=== PATIENT | female | born 1990 | race Caucasian/White ===

== ENCOUNTER 2019-07-25 09:03 | Emergency (ER) | payer OTHER, SELFPAY ==
--- NOTE | ~2019-07-25 | XR_ITS ---
EXAMINATION: XR foot RT min 3V DATE: 07/25/2019 10:39 INDICATION: Right foot wound. TECHNIQUE: 4 views of right foot were obtained. COMPARISON: None. FINDINGS: Bone alignment is normal. No fracture. Joint spaces are well maintained. IMPRESSION: 1. Normal right foot. Reviewed, dictated and finalized at location A. IMPRESSION: 1. Normal right foot.
[2019-07-25 09:05] VITALS: BP 133/85; PULSE 111; RESP 16; TEMP 36.8; O2SAT 98
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
[2019-07-25 09:54] LABS: Add Urine Microscopic? NO; Appearance Urine Clear (Clear); Bilirubin Urine Negative (Negative); Blood Urine Negative (Negative); Color Urine Yellow (Yellow); Glucose Urine UA Negative (Negative); Ketones Urine Negative (Negative); Leukocyte Esterase Ur Negative LEU/UL (Negative); Nitrate Urine Negative (Negative); Protein Urine Negative (Negative); Specific Grav Ur 1.016 (1.001-1.035); Urobilinogen Urine Negative mg/dL (<2.0)
[2019-07-25 10:11] LABS: Amphetamine Screen Urine Negative (Negative); Barbiturate Screen Urine Negative (Negative); Benzodiazepines Screen Urine Negative (Negative); Cannabinoid Screen Urine Positive (Negative); Cocaine Screen Urine Negative (Negative); Methadone Screen Urine Negative (Negative); Opiate Screen Urine Negative (Negative); Phencyclidine Screen Urine Negative (Negative)
[2019-07-25 11:16] LABS: Basophils Absolute Auto 0.1 K/mm3 (0.0-0.1); Basophils Percent Auto 0.7 % (0.2-1.2); Eosinophils Absolute Auto 0.3 K/mm3 (0-0.3); Eosinophils Percent Auto 4.6 % (0-4.4); Hematocrit 35.1 % (37.0-47.0); Hemoglobin 11.3 g/dL (12.0-15.0); Immature Granulocyte Absolute 0.09 K/mm3 (0.00-0.031); Immature Granulocyte Percent A 1.3 % (0-0.5); Lymphocytes Absolute Auto 2.53 K/mm3 (0.9-3.2); Lymphocytes Percent Auto 37.9 % (18.3-44.2); Mean Corpuscular HGB Conc 32.2 g/dl (32-36); Mean Platelet Volume 10.5 fl (7.4-10.4); Monocytes Absolute Auto 0.4 K/mm3 (0.1-0.6); Monocytes Percent Auto 6.6 % (2.6-8.5); Neutrophils Absolute Auto 3.3 K/mm3 (1.3-6.7); Neutrophils Percent Auto 48.9 % (45.5-73.1); Nucleated Red Blood Cells Perc 0.6 % (0.0-0.2); Platelet Count Result 339 k/mm3 (150-375); Red Blood Count 4.18 M/mm3 (4.2-5.4); Red Cell Distribution Width 17.4 % (11.5-14.5); White Blood Count 6.7 K/mm3 (4.5-10.0)
[2019-07-25 11:30] LABS: Ethanol < 10 mg/dL (<10)
[2019-07-25 11:32] LABS: Alanine Aminotransferase 22 U/L (4-35); Albumin Level 4.6 g/dL (3.5-5.1); Alkaline Phosphatase 88 U/L (38-126); Aspartate Amino Transferase 30 U/L (14-36); Bilirubin,Total 0.3 mg/dL (0.2-1.3); Blood Urea Nitrogen 15 mg/dL (7-17); Calcium 9.6 mg/dL (8.4-10.2); Carbon Dioxide 24 mmol/L (22-30); Chloride 106 mmol/L (98-107); Estimated CRCL calculation 88 ml/min; Estimated Glomerular Filt Rate > 60; Glucose 101 mg/dL (65-105); Sodium 142 mmol/L (137-145)
[2019-07-25 11:39] LABS: Potassium 4.9 mmol/L (3.4-5.0)
--- NOTE | 2019-07-25 12:09 | PC.NURSE ---
jorge alberto called to evaluate patient. they state they will be here within an hour
[2019-07-25] MEDS: CEPHALEXIN 500 MG CAPSULE PO (12:14)
[2019-07-25 14:37] VITALS: BP 122/80; PULSE 80; RESP 18; O2SAT 99
== END 2019-07-25 14:40 | disposition home or self-care (01) ==
PROVIDERS: Emergency Provider Emergency Medicine
DX: F43.20 Adjustment disorder, unspecified (principal); F32.9 Major depressive disorder, single episode, unspecified; F41.9 Anxiety disorder, unspecified
CPT/HCPCS: 36415; 73630; 80053; 80307; 81003; 81025; 84443; 85025; 99284; A9270

== ENCOUNTER 2019-10-20 12:06 | Emergency (ER) | payer OTHER, SELFPAY ==
[2019-10-20 12:00] VITALS: BP 118/70; PULSE 70; RESP 18; TEMP 36.3; O2SAT 98
--- NOTE | 2019-10-20 12:41 | ECG_ITS ---
Measurements Intervals [place] Rate: 63 P: 59 VT: 168 QRS: 73 QRSD: 91 T: 60 QT: 390 QTc: 400 Interpretive Statements SINUS RHYTHM NORMAL ECG Electronically Signed On 10-20-2019 14:11:09 CDT by Eamon Torre D.O.
[2019-10-20 12:42] VITALS: BP 106/78; PULSE 55; O2SAT 94
--- NOTE | 2019-10-20 12:42 | PC.NURSE ---
Patient refusing to give urine sample, refusing straight cath.
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
[2019-10-20] MEDS: SODIUM CHLORIDE 0.9% IV 1,000 ML 999 ML IV CONT (12:52)
[2019-10-20 12:53] LABS: Basophils Percent Auto 0.6 % (0.2-1.2); Eosinophils Absolute Auto 0.3 K/mm3 (0-0.3); Eosinophils Percent Auto 5.3 % (0-4.4); Hematocrit 36.4 % (37.0-47.0); Hemoglobin 11.5 g/dL (12.0-15.0); Immature Granulocyte Absolute 0.01 K/mm3 (0.00-0.031); Immature Granulocyte Percent A 0.2 % (0-0.5); Lymphocytes Absolute Auto 2.85 K/mm3 (0.9-3.2); Lymphocytes Percent Auto 44.5 % (18.3-44.2); Mean Corpuscular HGB Conc 31.6 g/dl (32-36); Mean Corpuscular Hemoglobin 27.6 pg (26-34); Mean Corpuscular Volume 87.3 fl (80-100); Mean Platelet Volume 10.3 fl (7.4-10.4); Monocytes Absolute Auto 0.4 K/mm3 (0.1-0.6); Monocytes Percent Auto 6.1 % (2.6-8.5); Neutrophils Absolute Auto 2.8 K/mm3 (1.3-6.7); Neutrophils Percent Auto 43.3 % (45.5-73.1); Platelet Count Result 313 k/mm3 (150-375); Red Blood Count 4.17 M/mm3 (4.2-5.4); Red Cell Distribution Width 16.6 % (11.5-14.5); White Blood Count 6.4 K/mm3 (4.5-10.0)
[2019-10-20] MEDS: NALOXONE HCL 0.4 MG/ML VIAL (12:53)
[2019-10-20 12:59] VITALS: RESP 14
--- NOTE | 2019-10-20 13:02 | PC.NURSE ---
prieto told this RN that patient wishing to leave. Dr Huang in talking with patient.
[2019-10-20 13:05] LABS: Alanine Aminotransferase 12 U/L (4-35); Albumin Level 4.6 g/dL (3.5-5.1); Alkaline Phosphatase 76 U/L (38-126); Anion Gap 10 mmol/L (8-16); Aspartate Amino Transferase 23 U/L (14-36); Bilirubin,Total 0.3 mg/dL (0.2-1.3); Blood Urea Nitrogen 14 mg/dL (7-17); Calcium 9.5 mg/dL (8.4-10.2); Carbon Dioxide 26 mmol/L (22-30); Chloride 103 mmol/L (98-107); Estimated CRCL calculation 98 ml/min; Estimated Glomerular Filt Rate > 60; Glucose 83 mg/dL (65-105); Potassium 3.6 mmol/L (3.4-5.0); Sodium 139 mmol/L (137-145)
[2019-10-20 13:11] VITALS: BP 119/89; PULSE 64; RESP 12; O2SAT 97
[2019-10-20 13:12] LABS: Ethanol < 10 mg/dL (<10)
== END 2019-10-20 13:37 | disposition left against medical advice (07) ==
PROVIDERS: Emergency Provider Emergency Medicine
DX: F11.10 Opioid abuse, uncomplicated (principal); F41.9 Anxiety disorder, unspecified; F32.9 Major depressive disorder, single episode, unspecified
CPT/HCPCS: 36415; 80053; 80307; 85025; 93005; 96361; 96374; 99284; J2310; J7030

== ENCOUNTER 2020-05-09 16:09 | Emergency (ER) | payer OTHER, SELFPAY ==
--- NOTE | ~2020-05-09 | CT_ITS ---
EXAMINATION: CT brain wo con DATE: 05/09/2020 17:03 INDICATION: Lateral rectus palsy. TECHNIQUE: Computed tomography (CT) of the head was performed without intravenous contrast. The mA wa s adjusted according to patient size. Iterative reconstruction technique was employed. The dose-lengt h product was 605.33 mGy-cm. COMPARISON: Head CT 03/15/2018 FINDINGS: There is no intracranial hemorrhage, acute infarction, or abnormal intracranial mass lesion . The ventricles are normal in size. The paranasal sinuses are clear. The mastoid air cells are humberto l. The orbits are normal. IMPRESSION: 1. Normal brain. Reviewed, dictated and finalized at location A. IMPRESSION: 1. Normal brain.
[2020-05-09 16:15] VITALS: BP 144/97; PULSE 98; RESP 20; TEMP 36.7; O2SAT 100
--- NOTE | 2020-05-09 17:15 | ED.EYEPROB ---
HPI - Eye Problem General Chief complaint: Eye Problems Stated complaint: r eye problems Time Seen by Provider: 05/09/20 16:31 Source: patient Mode of arrival: ambulatory Limitations: no limitations History of Present Illness HPI Narrative: 29-year-old with no major medical problems here with complaints of right eye pain started few hours ago. Patient states that she is unable to see out of her right eye everything is fuzzy and she states her eye is moving towards nose .Denies any headache. No previous history of glaucoma or migraine headaches. chief complaint: eye pain Onset (ago): hour(s) (3) Onset description: sudden Location: right eye Eye Symptoms: decreased vision and blurry vision Place: home Mechanism: none Associated symptoms: none Related Data Home Medications Medication Instructions Recorded Confirmed bupropion HCl mg PO 07/25/19 clonazepam 07/25/19 gabapentin 07/25/19 quetiapine [Seroquel] 07/25/19 Allergies Allergy/AdvReac Type Severity Reaction Status Date / Time azithromycin AdvReac Mild NAUSEA Verified 05/09/20 16:47 Review of Systems Review of Systems: All systems reviewed & are unremarkable except as noted in HPI and below Constitutional: Constitutional: Reports no additional constitutional complaints Eyes: Eyes: Reports as per HPI, Reports no additional eye complaints and Reports change in vision (right ) ENT: Reports system reviewed and no additional complaints, except as documented Cardiovascular: Cardiovascular: Reports no additional cardiovascular complaints Gastrointestinal: Gastrointestinal: Reports no additional gastrointestinal complaints Genitourinary: Genitourinary: Reports no additional female genitourinary complaints PMFSH Past Medical History Medical History Anxiety Depression Epilepsy Self-mutilation Surgical History Surgical History No history of previous surgery Social History Social History (Updated 07/25/19 @ 09:27 by Fuad Barber DO) Smoking status: Never smoker Gender identity (if verbalized by the patient): Female Exam Narrative: Exam Narrative: GENERAL: Well-appearing, well-nourished, and in no acute distress. HEAD: Normocephalic, atraumatic. EYES: PERRLA and EOMI. pupils size about 7 MM . ENT: Nares clear, no rhinorrhea or epistaxis. Mucous membranes moist. NECK: Supple. CHEST: Clear to auscultation. No respiratory distress. HEART: Regular rate and rhythm. No murmur heard. Normal peripheral pulses. EXTREMITIES: Normal range of motion. No edema. SKIN: Warm, dry, no rash. NEURO: No focal deficits. Alert and oriented x3. PSYCH: Normal mood and affect. Course Course Emergency Course: Her effusion on the left is 20/50 without glasses on the right she is unable to see. Discussed with ophthalmology at [facility] Dr. Joe recommended to transfer to the ER for further evaluation. Vital Signs Vital signs: Vital Signs Temperature 36.7 C 05/09/20 16:15 Pulse Rate 98 05/09/20 16:15 Respiratory Rate 20 05/09/20 16:15 Blood Pressure 144/97 H 05/09/20 16:15 Pulse Oximetry 100 05/09/20 16:15 Temperature 36.7 C 05/09/20 16:15 Pulse Rate 98 05/09/20 16:15 Respiratory Rate 20 05/09/20 16:15 Blood Pressure 144/97 H 05/09/20 16:15 Pulse Oximetry 100 05/09/20 16:15 MDM - Eye Problem Lab Data Labs: UCG Bedside Result Negative Reference Range: Negative Imaging Data Radiologist's impression: ITS Impressions Head CT 05/09/20 17:06 IMPRESSION: 1. Normal brain. Discharge Plan Discharge Clinical Impression: Optic neuritis Patient Disposition: Acute Care Hospital Condition: Stable Prescriptions: No Action gabapentin 600 mg tablet RF: 0 clonazepam 1 mg ta
== END 2020-05-09 17:25 | disposition short-term general hospital (02) ==
PROVIDERS: Emergency Provider Family Medicine; PCP Internal Medicine
DX: H46.9 Unspecified optic neuritis (principal); F41.9 Anxiety disorder, unspecified; F32.9 Major depressive disorder, single episode, unspecified; G40.909 Epilepsy, unspecified, not intractable, without status epilepticus
CPT/HCPCS: 70450; 81025; 99284

== ENCOUNTER 2020-07-27 11:57 | Emergency (ER) | payer OTHER, SELFPAY ==
[2020-07-27 12:03] VITALS: BP 100/50; PULSE 72; RESP 20; TEMP 36.3; O2SAT 98
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
[2020-07-27 15:12] VITALS: BP 112/74; PULSE 74; RESP 18; O2SAT 100
--- NOTE | 2020-07-27 15:14 | PC.NURSE ---
Pt was given a box lunch. Pt also ambulated to phone to call for a ride with no difficulty
== END 2020-07-27 15:14 | disposition home or self-care (01) ==
PROVIDERS: Emergency Provider Emergency Medicine; PCP Internal Medicine
DX: Z04.1 Encounter for examination and observation following transport accident (principal); M79.671 Pain in right foot; F41.9 Anxiety disorder, unspecified; F32.9 Major depressive disorder, single episode, unspecified; G40.909 Epilepsy, unspecified, not intractable, without status epilepticus; V47.5XXA Car driver injured in collision with fixed or stationary object in traffic accident, initial encounter
CPT/HCPCS: 99282

== ENCOUNTER 2020-07-27 18:32 | Emergency (ER) | payer OTHER, SELFPAY ==
--- NOTE | 2020-07-27 19:14 | PC.NURSE ---
patient arrived via ems to room 9. patient refused vital signs or to answer assessment questions. patient walked out of room stating she did not want to be treated
== END 2020-07-27 19:41 | disposition left against medical advice (07) ==
PROVIDERS: PCP Internal Medicine
DX: Z53.21 Procedure and treatment not carried out due to patient leaving prior to being seen by health care provider (principal)
CPT/HCPCS: 99199